=== PATIENT | male | born 1990 | race Caucasian/White ===

== ENCOUNTER 2023-07-30 18:00 | Outpatient (RCR) | payer OTHER, MEDICAID, SELFPAY ==
--- NOTE | 2023-06-26 11:20 | HP.OTEVAL ---
Patient's Visit Information Visit Information Visit Information: ZACH HOUSER is a 33 year old M, referred to Occupational Therapy by Dr. Quin Perez MD, with a diagnosis of boutonniere deformity/infection. Date of Evaluation: 06/26/23 Occupational Therapist: Yue Corbin, KRISSY/Jaime, CHT Subjective Subjective: This 33 year old male was seen for OT eval with dx of right IF. Pt states he had swelling in his right IF of Mar. and was scheduled for sx in Apr. ( pt is unsure of date of sx) pt states he underwent a Open irrigation and debridement with a ligament repair ( boutonniere deformity ) Splinted until . pt states since sx he has returned to work light duty and has been trying to use his right IF for work tasks. pt would like to gain ROM and strength to return to his PLOF. Pain right IF: Current Pain Intensity: 3 Pain Intensity Range: 2 and 6 ROM MP: right 0/65 left 0/70 PIP: right -10/45 left 0/100 DIP: right 0/25 left 0/75 ROM Comments: pt demo with limited ROM of right dominate hand Strength Associate Art Director: right 95# left 120# Lateral Pinch: right 12# left 24# Tripod Pinch: right 14# left 24# Sensation Sensation Comments: denies Goals Goal:Daily scar massage when approriate: Yes Goal:ROM equal to unaffected hand: Yes Comment: PIP ROM to reach -5/85* to from composite fist Goal:Associate Art Director/Pinch strength at least 75% of unaffected hand: Yes Goal:No pain with affected hand use: Yes Goal:Full use of affected hand in daily activities including work: Yes Rehabilitation General Assessment: pt arrives 1 week and 6 days from cast/splint removal. Pt states finger is painful and due to limited ROM and weakness pt is compensating with all ADLs and IADLs. Pt would benefit from skilled OT services 1-2x week for 6-8 weeks to return pt to his PLOF. Today therapist ed. pt on AROM of DIP, PIP and MCP as well as scar mtg and tendon glides. pt demo understanding and agrees to POC. Rehabilitation Potential: Good Anticipated Interventions Anticipated Interventions: A/AAROM/PROM, Strengthening, Scar Care, Modalities, Orthoses, Fine Motor Coord/Boom, Education re Diagnosis, Caregiver Training and Home Program Visit Plan Frequency: 1-2x /Week Duration: 4-6 Weeks TEXT: Thank you for the opportunity to evaluate your patient. For Medicare and Medicare HMO plans, please review the plan of care and approve it. It will need to be FAXED BACK to us at [phone] for Medicare purposes. Please let me know if there are questions or concerns regarding this plan of care. Physician Signature: Date:
--- NOTE | 2023-12-12 11:16 | HP.OTDCNRP_ITS ---
Patient Information Patient Information: ZACH HOUSER was seen in my office for initial evaluation on 06/26/23. The following Plan of Care was established for this patient: POC Established Initial Frequency: 1-2x /Week Initial Duration: 4-6 Weeks Plan: AROM PROM strengthening Anticipated Interventions Anticipated Interventions: A/AAROM/PROM, Strengthening, Scar Care, Modalities, Orthoses, Fine Motor Coord/Boom, Education re Diagnosis, Caregiver Training and Home Program Last Seen Last Seen: This patient was last seen in our office 07/30/23. Pertinent comments regarding their Occupational therapy will appear below: pt was seen for 6 OT sessions- right IF PIP -25/ 75 ( PIP ext has been to -15*) right DIP 40* 100# acupressure therapist strength 12# tripod pinch 16# lateral pinch pt has not scheduled further apts and due to time lapse in services pt d/c at this time. At this point I will be discontinuing this patient from occupational therapy. I would be happy to see this patient again in the future if found appropriate by the physician. Thank you! Yue Corbin, OTR/L, CHT
== END 2023-07-30 19:00 | disposition home or self-care (01) ==
LOC: OT 18:00
PROVIDERS: PCP Internal Medicine; Visit Provider Orthopaedic Surgery Hand Surgery
DX: M19.042 Primary osteoarthritis, left hand (principal)
CPT/HCPCS: 97110; 97166; 97530